=== PATIENT | male | born 1940 | race Caucasian/White ===

== ENCOUNTER 2019-02-25 13:17 | Emergency (ER) | payer MEDICARE, OTHER ==
[2019-02-25 13:57] VITALS: BP 152/77
--- NOTE | 2019-02-25 15:23 | EDM.PDOC ---
ED HPI GENERAL MEDICAL PROBLEM - General Chief Complaint: General Stated Complaint: PAIN IN SHOULDER & NECK Time Seen by Provider: 02/25/19 13:30 Source of Information: Reports: Patient, Family History Limitations: Reports: No Limitations - History of Present Illness INITIAL COMMENTS - FREE TEXT/NARRATIVE: This is a 78yo M here for neck pain and radiation to the shoulders and shoulder blades. He has tenderness of the muscles and grinding with movement of the neck. He states the symptoms have progressed over the years and he just couldn' t stand it any more. Onset: Gradual Duration: Chronic, Getting Worse Location: Reports: Neck Neck Pain Score (Numeric/FACES): 6 - Related Data Allergies Allergy/AdvReac Type Severity Reaction Status Date / Time No Known Allergies Allergy Verified 02/25/19 13:47 Home Meds: Home Meds Aspirin 81 mg PO DAILY 10/27/15 [History] Glimepiride [Amaryl] 2 mg PO DAILY 10/27/15 [History] Metoprolol Succinate 50 mg PO DAILY 10/27/15 [History] Simvastatin [Zocor] 40 mg PO DAILY 02/25/19 [History] amLODIPine Besylate/Benazepril [Amlodipine-Benazepril 5-20 MG] 5 mg PO DAILY 11/08 [History] hydroCHLOROthiazide [Hydrochlorothiazide] 25 mg PO DAILY 02/25/19 [History] Past Medical History - Past Health History Medical/Surgical History: Denies Medical/Surgical History HEENT History: Reports: Impaired Vision Cardiovascular History: Reports: High Cholesterol, Hypertension Genitourinary History: Reports: Renal Calculus Endocrine/Metabolic History: Reports: Diabetes, Type II, Obesity/BMI 30+ Social & Family History - Family History Family Medical History: Noncontributory - Tobacco Use Smoking Status *Q: Never Smoker Second Hand Smoke Exposure: No - Caffeine Use Caffeine Use: Reports: None - Recreational Drug Use Recreational Drug Use: No ED ROS GENERAL - Review of Systems Review Of Systems: ROS reveals no pertinent complaints other than HPI. ED EXAM, GENERAL - Physical Exam Exam: See Below Exam Limited By: No Limitations General Appearance: Alert, WD/WN, No Apparent Distress Eye Exam: Bilateral Eye: EOMI, PERRL Ears: Normal External Exam Ear Exam: Bilateral Ear: TM normal Nose: Normal Inspection Throat/Mouth: Normal Inspection Head: Atraumatic, Normocephalic Neck: Full Range of Motion, Tender Lateral, Other (slight lump of the right mid neck area ) Respiratory/Chest: No Respiratory Distress, Lungs Clear, Normal Breath Sounds Cardiovascular: Normal Peripheral Pulses, Regular Rate, Rhythm GI/Abdominal: Normal Bowel Sounds Extremities: Normal Inspection Neurological: Alert, Oriented, CN II-XII Intact Psychiatric: Normal Affect, Normal Mood Skin Exam: Warm, Dry, Intact Course - Vital Signs Last Recorded V/S: Last Vital Signs Temp 36.1 C 02/25/19 13:25 Pulse 81 02/25/19 13:37 Resp 18 02/25/19 13:37 BP 152/77 H 02/25/19 13:37 Pulse Ox 94 L 02/25/19 13:37 - Orders/Labs/Meds Orders: Active Orders 24 hr Category Date Time Status Soft Tissue Neck wo Cont [CT] Stat Exams 02/25/19 13:52 Taken CBC WITH AUTO DIFF [HEME] Stat Lab 02/25/19 14:00 Results Labs: Laboratory Tests 02/25/19 02/25/19 Range/Units 14:00 14:00 WBC 7.6 (4.0-11.0) K/uL RBC 4.24 L (4.50-6.50) M/uL Hgb 11.3 L (13.0-18.0) g/dL Hct 35.4 L (40.0-54.0) % MCV 84 (76-96) fL MCH 26.7 L (27.0-32.0) pg MCHC 31.9 (31.0-35.0) g/dL RDW 14.8 (11.0-16.0) % Plt Count 227 (150-400) K/uL MPV 10.1 H (6.0-10.0) fL Add Manual Diff Yes Sodium 138 (136-145) mmol/L Potassium 3.7 (3.5-5.1) mmol/L Chloride 98 (98-107) mmol/L Carbon Dioxide 28.5 (21.0-32.0) mmol/L Anion Gap 15.2 H (5.0-15.0) mmol/L BUN 12 (8-26) mg/dL Creatinine 0.97 D (0.70-1.30) mg/dL Est Cr Clr Drug Dosing 71.80 mL/min Estimated GFR (MDRD) > 60 (>60) MLS/MIN BUN/Creatinine Ratio 12.4 (6-25) Glucose 380 H D (74-100) mg/dL Calcium 9.0 (8.5-10.1) mg/dL TSH, Ultra Sensitive 1.768 (0.358-3.740) uIU/mL Departure - Departure Time of Disposition: 15:30 Disposition: Home, Self-Care 01 Condition: Good Clinical Impression: Degenerative arthritis of cervical spine Qualifiers: Spinal osteoarthritis complication: with radiculopathy Qualified Code(s): M47.22 - Other spondylosis with radiculopathy, cervical region - Discharge Information Instructions: Arthritis, Naproxen and naproxen sodium oral immediate-release tablets Referrals: PCP,None [Primary Care Provider] - Forms: ED Department Discharge Additional Instructions: Discharge home. Activity: as tolerated. Limit bending and twisting. Diet: Diabetic diet Medications: Continue current home medications. Naproxen 500mg 1 tablet by mouth 2 times a day for 1 month. After 1 month re- evaluate in the clinic. Call or return to the clinic or ER if you have questions or concerns. - Problem List & Annotations (1) Degenerative arthritis of cervical spine SNOMED Code(s): 595674979 Code(s): M47.812 - SPONDYLOSIS W/O MYELOPATHY OR RADICULOPATHY, CERVICAL REGION Status: Acute Priority: High Current Visit: Yes Qualifiers: Spinal osteoarthritis complication: with radiculopathy Qualified Code(s): M47.22 - Other spondylosis with radiculopathy, cervical region - Problem List Review Problem List Initiated/Reviewed/Updated: Yes - My Orders Last 24 Hours: My Active Orders 02/25/19 13:52 Soft Tissue Neck wo Cont [CT] Stat 02/25/19 14:00 CBC WITH AUTO DIFF [HEME] Stat - Assessment/Plan Last 24 Hours: My Active Orders 02/25/19 13:52 Soft Tissue Neck wo Cont [CT] Stat 02/25/19 14:00 CBC WITH AUTO DIFF [HEME] Stat Plan: Counseled on supportive care. Discussed conservative therapy. Counseled on use of naproxen and f/u in 1 month and as needed if symptoms persist or worsen for further workup and MRI. Counseled on medication side effects and therapy. Discussed PT/OT as needed and for f/u referral as needed.
--- NOTE | 2019-02-25 15:44 | CT ---
DATE OF SERVICE: 02/25/2019 CLINICAL DATA: Neck pain, swelling of right neck Unenhanced neck CT: Multislice acquisition through the neck without IV contrast was performed. The visualized paranasal sinuses are clear. The parotid glands have some atrophy and appear normal. Thyroid gland appears normal. The right submandibular gland appears mildly prominent compared to the left. Sialoadenitis should be considered. The pharynx, larynx, and airway appear unremarkable. No adenopathy. There is fluid in the sternoclavicular joints. There is degenerative disc disease throughout the cervical spine with disc space narrowing at multiple levels. There is facet joint hypertrophy throughout the cervical spine. No lytic or blastic bone lesions. MTDD
== END 2019-02-25 15:20 | disposition home or self-care (01) ==
LOC: LB.ED 13:17
DX: M47.22 Other spondylosis with radiculopathy, cervical region (principal); I10 Essential (primary) hypertension; E11.9 Type 2 diabetes mellitus without complications; E78.00 Pure hypercholesterolemia, unspecified; E66.9 Obesity, unspecified; Z68.32 Body mass index [BMI] 32.0-32.9, adult; Z79.82 Long term (current) use of aspirin; Z79.84 Long term (current) use of oral hypoglycemic drugs; Z79.899 Other long term (current) drug therapy
CPT/HCPCS: 36415; 70490; 80048; 84443; 85025; 99283; 99284-25

== ENCOUNTER 2023-12-17 05:06 | Emergency (ER) | payer MEDICARE, OTHER ==
[2023-12-17 06:36] VITALS: BP 143/71; PULSE 76
== END 2023-12-17 06:43 | disposition home or self-care (01) ==
LOC: LB.ED 05:06
DX: M17.0 Bilateral primary osteoarthritis of knee (principal); B02.9 Zoster without complications; I10 Essential (primary) hypertension; E11.9 Type 2 diabetes mellitus without complications; Z79.82 Long term (current) use of aspirin; Z79.899 Other long term (current) drug therapy; Z79.84 Long term (current) use of oral hypoglycemic drugs; E78.00 Pure hypercholesterolemia, unspecified
CPT/HCPCS: 73502; 73560; 99283; A0425; A0428

== ENCOUNTER 2023-12-17 11:36 | Inpatient (IN) | payer MEDICARE, OTHER ==
[2023-12-17] MEDS ORDERED: Sodium Chloride 0.9% 10 ML Syringe FLUSH PRN (12:50)
[2023-12-17 13:16] LABS: HEMATOCRIT 39.1 % (40.0-54.0); HEMOGLOBIN 12.9 g/dL (13.0-18.0); MEAN CORPUSCULAR HEMOGLOBIN 28.3 pg (27.0-32.0); MEAN CORPUSCULAR VOLUME 86 fL (76-96); MEAN PLATELET VOLUME 10.4 fL (6.0-10.0); PLATELET COUNT,PLT 137 K/uL (150-400); RED BLOOD CELL COUNT 4.56 M/uL (4.50-6.50); RED CELL DISTRIBUTION WIDTH 15.9 % (11.0-16.0); WHITE BLOOD CELL COUNT,WBC 8.1 K/uL (4.0-11.0)
[2023-12-17 13:35] LABS: A/G RATIO 0.8 (0.8-2.0); ALBUMIN 3.9 g/dL (3.4-5.0); BILIRUBIN TOTAL 0.7 mg/dL (0.0-1.0); BUN/CREATININE RATIO 16.4 (6-25); CARBON DIOXIDE,CO2 28.5 mmol/L (21.0-32.0); CREATININE 1.1 mg/dL (0.70-1.30); EST CRCL DRUG DOSING (CG) 59.75 mL/min; POTASSIUM,K 3.5 mmol/L (3.5-5.1); TROPONIN I HIGH SENSITIVITY 33.3 pg/ml (<=60.4)
[2023-12-17] MEDS: Morphine 4 MG/ML VIAL IVPUSH ONE (14:15)
[2023-12-17 14:19] LABS: HEMOGLOBIN A1C 6.8 % (< 5.7)
[2023-12-17 14:27] LABS: GIANT PLATELETS FEW; PLATELET COUNT ESTIMATE ADEQUATE; STOMATOCYTES RARE
[2023-12-17] MEDS: Sodium Chloride 0.9% 50 ML SDV FLUSH ONE ×2 (14:44→18:15)
[2023-12-17] MEDS: Iopamidol 612 MG/ML 100 ML Bottle IV SCH (14:44)
[2023-12-17] MEDS: Morphine 4 MG/ML VIAL ONE (15:31)
[2023-12-17] MEDS: Enoxaparin 40 MG/0.4 ML Syringe SUBCUT SCH (17:18)
[2023-12-17] MEDS: Lactated Ringers 1,000 ML IV SCH (17:30)
[2023-12-17] MEDS: Iopamidol 755 Mg/ML 100 ML Bottle IV SCH (18:15)
[2023-12-17] MEDS: valACYclovir 1,000 MG Tab PO SCH (20:04)
[2023-12-18] MEDS ORDERED: Non-Formulary Medication 1 Each (Amlodipine Besylate/Benazepril [Amlodipine-Benazepril 5-2 PO SCH (08:00)
[2023-12-18] MEDS: Metoprolol Succinate 50 MG Tab.ER PO SCH (08:26)
[2023-12-18] MEDS: valACYclovir 500 MG Tab PO SCH (08:26)
[2023-12-18] MEDS: Benazepril 10 MG Tab PO SCH (08:26)
[2023-12-18] MEDS: Glimepiride 4 MG Tab PO SCH (08:27)
[2023-12-18] MEDS: Simvastatin 40 MG Tab PO SCH (08:27)
[2023-12-18] MEDS: Hydrochlorothiazide 25 MG Tab PO SCH (08:27)
[2023-12-18] MEDS: Aspirin 81 MG Tab.EC PO SCH (08:27)
[2023-12-18] MEDS: amLODIPine 5 MG Tab PO SCH (08:27)
[2023-12-18] MEDS: Naproxen 500 MG Tab PO PRN (09:19)
[2023-12-18] MEDS: Heparin Sodium 5,000 Units/ML Vial IVPUSH ONE (09:45)
[2023-12-18] MEDS: Heparin Sodium/D5W 25,000 UNITS/500 ML BAG IV SCH (09:47)
[2023-12-18] MEDS: Heparin Sodium/D5W 500 ML ONE (10:46)
[2023-12-18] MEDS: Tamsulosin 0.4 MG Cap.ER PO SCH (10:46)
[2023-12-18] MEDS: Zinc Oxide 20% Oint 56.7 GM Tube TOP SCH (10:46)
[2023-12-18] MEDS: Morphine 4 MG/ML VIAL IVPUSH PRN (14:15)
[2023-12-18 14:54] LABS: APPEARANCE,URINE CLOUDY (CLEAR); BILIRUBIN,URINE NEGATIVE (NEGATIVE); GLUCOSE,URINE NEGATIVE (NEGATIVE); KETONES,URINE 15 mg/dL (NEGATIVE); LEUKOCYTE ESTERASE,URINE NEGATIVE (NEGATIVE); NITRITE,URINE NEGATIVE (NEGATIVE); PH,URINE 5.5 (5.0-8.0); PROTEIN,URINE 100 mg/dL (NEGATIVE); UROBILINOGEN,URINE 0.2 E.U./dL (0.2-1.0)
[2023-12-18 14:59] LABS: COLOR,URINE RED
[2023-12-18 15:00] LABS: OCCULT BLOOD,URINE LARGE (NEGATIVE); RBC,URINE 75-100 /HPF
[2023-12-18 15:01] LABS: WBC,URINE NOT SEEN /HPF
[2023-12-18] MEDS: Naproxen 500 MG Tab PO SCH (20:04)
[2023-12-19 09:26] LABS: HEMATOCRIT 35.3 % (40.0-54.0); HEMOGLOBIN 11.7 g/dL (13.0-18.0); MEAN CORPUSCULAR HEMOGLOBIN 28.4 pg (27.0-32.0); MEAN CORPUSCULAR HGB CONC 33.1 g/dL (31.0-35.0); MEAN PLATELET VOLUME 9.9 fL (6.0-10.0); RED BLOOD CELL COUNT 4.12 M/uL (4.50-6.50); RED CELL DISTRIBUTION WIDTH 15.3 % (11.0-16.0); WHITE BLOOD CELL COUNT,WBC 11.9 K/uL (4.0-11.0)
[2023-12-19 09:43] LABS: ANION GAP 9.1 mmol/L (5.0-15.0); BUN/CREATININE RATIO 17.3 (6-25); CALCIUM 8.3 mg/dL (8.5-10.1); CARBON DIOXIDE,CO2 30.1 mmol/L (21.0-32.0); CREATININE 1.04 mg/dL (0.70-1.30); EST CRCL DRUG DOSING (CG) 63.19 mL/min; MAGNESIUM 1.5 mg/dL (1.8-2.4); PHOSPHORUS 3.2 mg/dL (2.5-4.9); POTASSIUM,K 3.2 mmol/L (3.5-5.1)
[2023-12-19] MEDS: Pantoprazole 40 MG Tab.CR PO SCH (10:21)
[2023-12-19] MEDS: Potassium Chloride Riders 50 ML IV ONE (11:24)
[2023-12-19] MEDS: Sodium Chloride 0.9% 100 ML IV SCH (11:41)
[2023-12-19] MEDS: Gabapentin 100 MG Cap PO SCH (14:08)
[2023-12-19] MEDS: Acetaminophen/Codeine 300-30 MG Tab PO PRN (20:09)
[2023-12-19] MEDS ORDERED: HYDROmorphone 2 MG/ML Syringe IVPUSH PRN (20:28)
[2023-12-19] MEDS: valACYclovir 500 MG Tab ONE (21:41)
[2023-12-20] MEDS: Chondroitin/Glucosamine Cap PO SCH (08:23)
[2023-12-20] MEDS: metFORMIN 500 MG Tab.ER PO SCH (08:23)
[2023-12-20] MEDS: [UNRECOGNIZED DRUG - REMARK] PO SCH (09:42)
[2023-12-20 17:38] LABS: HEMATOCRIT 34.2 % (40.0-54.0); HEMOGLOBIN 11.1 g/dL (13.0-18.0); MEAN CORPUSCULAR HGB CONC 32.5 g/dL (31.0-35.0); MEAN PLATELET VOLUME 10.7 fL (6.0-10.0); RED BLOOD CELL COUNT 3.97 M/uL (4.50-6.50); RED CELL DISTRIBUTION WIDTH 15.3 % (11.0-16.0); WHITE BLOOD CELL COUNT,WBC 9.9 K/uL (4.0-11.0)
[2023-12-20 17:44] LABS: BUN/CREATININE RATIO 20.5 (6-25); CALCIUM 8.2 mg/dL (8.5-10.1); CARBON DIOXIDE,CO2 30.5 mmol/L (21.0-32.0); CREATININE 1.22 mg/dL (0.70-1.30); EST CRCL DRUG DOSING (CG) 53.87 mL/min; MAGNESIUM 1.9 mg/dL (1.8-2.4); POTASSIUM,K 3.5 mmol/L (3.5-5.1)
[2023-12-20] MEDS: Zolpidem 5 MG Tab PO SCH (19:36)
[2023-12-21] MEDS: Hydrochlorothiazide 25 MG Tab PO ONE (10:29)
[2023-12-21] MEDS: Bisacodyl 5 MG Tab PO SCH (10:30)
[2023-12-22] MEDS: Hydrochlorothiazide 25 MG Tab PO SCH (08:02)
[2023-12-22] MEDS: Iodixanol 652 MG/ML 100 ML Bottle IV PRN (13:24)
[2023-12-22] MEDS: Sodium Chloride 0.9% 50 ML SDV FLUSH SCH (13:24)
[2023-12-22] MEDS ORDERED: Sodium Chloride 0.9% 50 ML SDV FLUSH ONE (13:53)
[2023-12-22] MEDS ORDERED: Iodixanol 652 MG/ML 100 ML Bottle IV SCH (14:00)
[2023-12-22] MEDS: Enoxaparin 60 MG/0.6 ML Syringe ONE (14:25)
[2023-12-22] MEDS: Enoxaparin 60 MG/0.6 ML Syringe SUBCUT SCH (14:25)
[2023-12-22] MEDS: fentaNYL 100 MCG/2 ML SDV IVPUSH ONE (17:24)
[2023-12-22] MEDS: diazePAM 5 MG/ML MDV IV ONE (18:00)
[2023-12-22 21:11] VITALS: BP 132/77; PULSE 92
[2023-12-22] MEDS ORDERED: fentaNYL 100 MCG/2 ML SDV IVPUSH PRN (23:29)
[2023-12-23] MEDS ORDERED: Ondansetron 4 MG/2 ML SDV ONE (03:02)
[2023-12-23] MEDS: Ondansetron 4 MG/2 ML SDV IVPUSH PRN (03:28)
[2023-12-25 14:19] LABS: B. BURGDORFERI IGG IMMUNOBLOT Negative (Negative); B. BURGDORFERI IGM IMMUNOBLOT Negative (Negative)
== END 2023-12-23 03:07 | DRG 563 ==
LOC: LB.ED 11:36 → LB.MS 16:36 → UNDOADMIN 16:36 → LB.MS 12-18 09:42
PROVIDERS: ADMIT Surgery; ATTEND Surgery
DX: S83.91XA Sprain of unspecified site of right knee, initial encounter (principal); Z68.41 Body mass index [BMI] 40.0-44.9, adult; S83.92XA Sprain of unspecified site of left knee, initial encounter; E11.42 Type 2 diabetes mellitus with diabetic polyneuropathy; M17.0 Bilateral primary osteoarthritis of knee; M25.561 Pain in right knee; E11.9 Type 2 diabetes mellitus without complications; E66.9 Obesity, unspecified; M25.562 Pain in left knee; Z79.84 Long term (current) use of oral hypoglycemic drugs; M25.551 Pain in right hip; R29.6 Repeated falls; E66.01 Morbid (severe) obesity due to excess calories; I10 Essential (primary) hypertension; G47.30 Sleep apnea, unspecified; B02.9 Zoster without complications; E78.00 Pure hypercholesterolemia, unspecified; R07.89 Other chest pain; R79.89 Other specified abnormal findings of blood chemistry; R53.83 Other fatigue; R31.9 Hematuria, unspecified; R32 Unspecified urinary incontinence; Z79.82 Long term (current) use of aspirin; Z79.899 Other long term (current) drug therapy; W18.30XA Fall on same level, unspecified, initial encounter
CPT/HCPCS: 36415; 71045; 71260; 80053; 83036; 83690; 83880; 84484; 85025; 85379; 93005; 93010; 96374; 99285; J2270; J3490; Q9967; 51702; 51798; 70450; 70496; 70498; 71275; 72131; 73502-RT; 73560-50; 80048; 81001; 82550; 82947; 83735; 84100; 85027; 85730; 86617; 97162-GP; 99222; 99232; 99239; 99283; A0425; A0428; A9270-GY; J1644; J1650; J2405; J3010; J3360; J3475; J3480; J7120